=== PATIENT | female | born 1985 | race Caucasian/White ===

== ENCOUNTER 2017-08-26 15:59 | Emergency (ER) | payer OTHER ==
[~2017-08-26] VITALS: Ht 157.5 cm; Wt 84.9 kg
[2017-08-26 16:42] LABS: BASOPHILS # (AUTO) 0.06 x10^3/uL (0-0.1); BASOPHILS % (AUTO) 1 % (0-1); EOSINOPHILS # (AUTO) 0.02 x10^3/uL (0-0.4); EOSINOPHILS % (AUTO) 0 % (1-7); LYMPHOCYTES # (AUTO) 1.14 x10^3/uL (1-3.4); LYMPHOCYTES % (AUTO) 9 % (22-44); MD NO; MEAN CORPUSCULAR HEMOGLOBIN 30.1 pg (27.0-34.8); MEAN CORPUSCULAR HGB CONC 34.8 g/dL (32.4-35.8); MEAN CORPUSCULAR VOLUME 86.6 fL (80-100); MEAN PLATELET VOLUME 7.4 fL (7.4-10.4); MONOCYTES # (AUTO) 0.49 x10^3/uL (0.2-0.8); MONOCYTES % (AUTO) 4 % (2-9); NEUTROPHILS # (AUTO) 11.08 x10^3/uL (1.8-6.8); NEUTROPHILS % (AUTO) 87 % (42-75); PLATELET COUNT 244 x10^3/uL (130-400); RED BLOOD COUNT 4.63 x10^6/uL (3.82-5.3); RED CELL DISTRIBUTION WIDTH 13.5 % (9.6-15.2)
[2017-08-26 16:50] LABS: CULTURE INDICATED? NO; MICROSCOPIC AUTO
[2017-08-26 16:54] LABS: ALBUMIN 3.5 g/dL (3.4-5.0); ANION GAP 8 mmol/L (5-15); CALCIUM 9.1 mg/dL (8.5-10.1); CHLORIDE 110 mmol/L (98-107)
[2017-08-26] MEDS ORDERED: PRENATAL VITAMIN (17:27)
[2017-08-26 17:29] VITALS: BP 116/72
== END 2017-08-26 17:59 | disposition home or self-care (01) ==
LOC: ED 17:21
DX: O20.0 Threatened abortion (principal); O26.891 Other specified pregnancy related conditions, first trimester; R10.2 Pelvic and perineal pain; Z3A.09 9 weeks gestation of pregnancy
CPT/HCPCS: 36415; 76801; 80048; 81001; 82040; 84702; 85025; 86901; 99285

== ENCOUNTER 2018-03-08 18:38 | Outpatient (CLI) | payer OTHER ==
[~2018-03-08] VITALS: Ht 157.5 cm; Wt 90.0 kg
[~2018-03-08 18:38] MED LIST: PRENATAL VITAMIN
[2018-03-08 18:57] VITALS: BP 127/77
[2018-03-08 19:35] LABS: MICROSCOPIC INDICATED
== END 2018-03-08 21:29 | disposition home or self-care (01) ==
LOC: LDOP 18:38
PROVIDERS: ATTEND Obstetrics & Gynecology
DX: O26.893 Other specified pregnancy related conditions, third trimester (principal); Z3A.36 36 weeks gestation of pregnancy; R10.9 Unspecified abdominal pain
CPT/HCPCS: 59025; 81001; 87086; 99211; G0463

== ENCOUNTER 2018-03-25 05:07 | Inpatient (IN) | payer OTHER ==
[~2018-03-25] VITALS: Ht 157.5 cm; Wt 90.0 kg
[2018-03-25] MEDS ORDERED: OXYTOCIN 30U/ 0.9% NaCL 500ML 500 ML IV PRN (05:09)
[2018-03-25] MEDS: D5%-LACTATED RINGERS 1,000 ML IV SCH ×3 (05:09→19:56)
[2018-03-25] MEDS ORDERED: OXYTOCIN 30U/ 0.9% NaCL 500ML 500 ML IV ONE (05:09)
[2018-03-25 05:11] VITALS: BP 114/78
[2018-03-25] MEDS ORDERED: FENTANYL PF 100 MCG/2ML IVPush PRN (05:30)
[2018-03-25] MEDS ORDERED: FENTANYL PF 100 MCG/2ML IV PRN (05:30)
[2018-03-25] MEDS ORDERED: CALCIUM CARBONATE 500 MG TAB.CHEW PO PRN (05:30)
[2018-03-25] MEDS ORDERED: ONDANSETRON 2MG/ML, 2ML IVPush PRN ×2 (05:30→12:00)
[2018-03-25] MEDS ORDERED: NEWBORN KIT ONE (05:40)
[2018-03-25] MEDS ORDERED: OXYTOCIN 30U/ 0.9% NaCL 500ML 500 ML ONE (05:41)
[2018-03-25 05:49] LABS: BASOPHILS # (AUTO) 0.02 x10^3/uL (0-0.1); BASOPHILS % (AUTO) 0 % (0-1); EOSINOPHILS # (AUTO) 0.07 x10^3/uL (0-0.4); EOSINOPHILS % (AUTO) 1 % (1-7); LYMPHOCYTES # (AUTO) 1.35 x10^3/uL (1-3.4); LYMPHOCYTES % (AUTO) 15 % (22-44); MD NO; MEAN CORPUSCULAR HEMOGLOBIN 30.6 pg (27.0-34.8); MEAN CORPUSCULAR HGB CONC 34.6 g/dL (32.4-35.8); MEAN CORPUSCULAR VOLUME 88.2 fL (80-100); MEAN PLATELET VOLUME 7.7 fL (7.4-10.4); MONOCYTES # (AUTO) 0.69 x10^3/uL (0.2-0.8); MONOCYTES % (AUTO) 8 % (2-9); NEUTROPHILS # (AUTO) 6.93 x10^3/uL (1.8-6.8); NEUTROPHILS % (AUTO) 77 % (42-75); PLATELET COUNT 177 x10^3/uL (130-400); RED CELL DISTRIBUTION WIDTH 14.4 % (9.6-15.2)
[2018-03-25] MEDS: LACTATED RINGERS 1,000 ML IV SCH ×5 (06:10→19:59)
[2018-03-25 07:10] VITALS: BP 119/82
[2018-03-25] MEDS ORDERED: FENTANYL/BUPIV./NS/PF 250 ML EPIDCONT SCH (07:52)
[2018-03-25] MEDS ORDERED: FENTANYL PF 500 MCG, BUPIVACAINE/PF 0.5%, 30ML 62.5 ML in SODIUM CHLORIDE 0.9% 177.5 ML EPIDCONT SCH ×2 (08:30)
[2018-03-25] MEDS ORDERED: BUPIVACAINE 0.25% ONE (11:18)
[2018-03-25] MEDS: FENTANYL/BUPIV./NS/PF 250 ML EPIDCONT SCH (11:41)
[2018-03-25] MEDS ORDERED: EPHEDRINE 50 MG/ML, 1ML IVPush PRN (12:00)
[2018-03-25] MEDS ORDERED: LACTATED RINGERS 1,000 ML IVBOLUS PRN (12:00)
[2018-03-25] MEDS ORDERED: DIPHENHYDRAMINE 50 MG/ML, 1ML IVPush PRN (12:00)
[2018-03-25] MEDS ORDERED: NALOXONE 0.4 MG/ML, 1ML IVPush PRN (12:00)
[2018-03-25 19:30] VITALS: BP 124/78
[2018-03-25] MEDS ORDERED: ACETAMINOPHEN 325 MG TABLET ONE (19:51)
[2018-03-25] MEDS ORDERED: ACETAMINOPHEN 325 MG TABLET PO PRN (20:00)
[2018-03-25] MEDS: CEFAZOLIN PMX 2GM/50ML 50 ML IVPB SCH (20:40)
[2018-03-25] MEDS ORDERED: ONDANSETRON 2MG/ML, 2ML ONE (20:52)
[2018-03-26] MEDS ORDERED: ACETAMINOPHEN 325 MG TABLET ONE (01:22)
[2018-03-26] MEDS: LACTATED RINGERS 1,000 ML IV SCH ×6 (01:24→21:09)
[2018-03-26] MEDS: FENTANYL/BUPIV./NS/PF 250 ML EPIDCONT SCH (02:55)
[2018-03-26] MEDS ORDERED: FENTANYL PF 100 MCG/2ML ONE (03:16)
[2018-03-26] MEDS ORDERED: AZITHROMYCIN 1,000 MG in SODIUM CHLORIDE 0.9% 500 ML IV ONE (04:00)
[2018-03-26] MEDS: CEFAZOLIN PMX 2GM/50ML 50 ML IVPB SCH ×3 (04:03→20:00)
[2018-03-26] MEDS: D5%-LACTATED RINGERS 1,000 ML IV SCH ×3 (05:09→21:09)
[2018-03-26] MEDS ORDERED: OXYTOCIN 30U/ 0.9% NaCL 500ML 500 ML ONE (07:06)
[2018-03-26] MEDS ORDERED: KETOROLAC 30 MG/1 ML IM ONE (08:00)
[2018-03-26] MEDS ORDERED: METHYLERGONOVINE 0.2 MG/ML IM PRN (08:00)
[2018-03-26] MEDS ORDERED: ONDANSETRON 2MG/ML, 2ML IV PRN (08:00)
[2018-03-26] MEDS ORDERED: CALCIUM CARBONATE 500 MG TAB.CHEW PO PRN (08:00)
[2018-03-26] MEDS ORDERED: MISOPROSTOL 200 MCG TABLET PR PRN (08:00)
[2018-03-26] MEDS ORDERED: MAGNESIUM HYDROXIDE 8%, 30ML UDC PO PRN (08:00)
[2018-03-26] MEDS: OXYTOCIN 30U/ 0.9% NaCL 500ML 500 ML IV SCH ×2 (08:15→17:53)
[2018-03-26] MEDS ORDERED: KETOROLAC 30 MG/1 ML ONE (08:30)
[2018-03-26] MEDS: PRENATAL VIT/IRON/FA 1 EACH TABLET PO SCH ×2 (09:00→12:36)
[2018-03-26 09:50] VITALS: BP 105/73
[2018-03-26] MEDS: DOCUSATE 100 MG CAPSULE PO PRN (12:36)
[2018-03-26] MEDS: IBUPROFEN 600 MG TABLET PO PRN ×2 (12:36→19:52)
[2018-03-26] MEDS: OXYcodone/APAP 5/325MG TABLET PO PRN ×2 (12:36→19:52)
[2018-03-26 12:46] VITALS: BP 123/84
[2018-03-26 16:23] VITALS: BP 118/67
[2018-03-26 16:52] LABS: MEAN CORPUSCULAR HEMOGLOBIN 31.1 pg (27.0-34.8); MEAN CORPUSCULAR HGB CONC 35.1 g/dL (32.4-35.8); MEAN CORPUSCULAR VOLUME 88.7 fL (80-100); MEAN PLATELET VOLUME 7.7 fL (7.4-10.4); PLATELET COUNT 160 x10^3/uL (130-400); RED BLOOD COUNT 3.58 x10^6/uL (3.82-5.3); RED CELL DISTRIBUTION WIDTH 14.4 % (9.6-15.2)
[2018-03-26 17:12] LABS: MD YES
[2018-03-26 17:14] LABS: <PLATELET ESTIMATE> ADEQUATE; <PLT MORPHOLOGY> NORMAL PLT MORPH; <RBC MORPHOLOGY> NORMAL; BAND#(MANUAL) 1.86 x10^3/uL; BANDS%(MANUAL) 8 % (0-7); LYMPH#(MANUAL) 3.25 x10^3/uL (1-3.4); LYMPHS% (MANUAL) 14 % (22-44); MONOS#(MANUAL) 0.46 x10^3/uL (0.3-2.7); MONOS% (MANUAL) 2 % (2-9); SEG#(MANUAL) 17.63 x10^3/uL (1.8-6.8); SEGS% (MANUAL) 76 % (42-75)
[2018-03-26 19:15] VITALS: BP 122/82
[2018-03-26 23:58] VITALS: BP 92/55
[2018-03-27] MEDS: OXYcodone/APAP 5/325MG TABLET PO PRN (00:20)
[2018-03-27] MEDS: IBUPROFEN 600 MG TABLET PO PRN ×3 (03:00→17:27)
[2018-03-27 04:00] VITALS: BP 98/61
[2018-03-27] MEDS: OXYcodone IR 5MG TABLET PO PRN ×4 (05:47→21:35)
[2018-03-27 08:30] VITALS: BP 99/61
[2018-03-27] MEDS: DOCUSATE 100 MG CAPSULE PO PRN ×2 (08:42→21:35)
[2018-03-27] MEDS: PRENATAL VIT/IRON/FA 1 EACH TABLET PO SCH (08:43)
[2018-03-27 10:29] LABS: BASOPHILS # (AUTO) 0.02 x10^3/uL (0-0.1); BASOPHILS % (AUTO) 0 % (0-1); EOSINOPHILS # (AUTO) 0.08 x10^3/uL (0-0.4); EOSINOPHILS % (AUTO) 1 % (1-7); LYMPHOCYTES # (AUTO) 1.48 x10^3/uL (1-3.4); LYMPHOCYTES % (AUTO) 10 % (22-44); MD NO; MEAN CORPUSCULAR HEMOGLOBIN 30.5 pg (27.0-34.8); MEAN CORPUSCULAR HGB CONC 34.1 g/dL (32.4-35.8); MEAN CORPUSCULAR VOLUME 89.3 fL (80-100); MEAN PLATELET VOLUME 7.6 fL (7.4-10.4); MONOCYTES # (AUTO) 0.81 x10^3/uL (0.2-0.8); MONOCYTES % (AUTO) 5 % (2-9); NEUTROPHILS % (AUTO) 85 % (42-75); PLATELET COUNT 168 x10^3/uL (130-400); RED BLOOD COUNT 3.42 x10^6/uL (3.82-5.3); RED CELL DISTRIBUTION WIDTH 14.5 % (9.6-15.2)
[2018-03-27 20:00] VITALS: BP 111/77
[2018-03-28] MEDS: IBUPROFEN 600 MG TABLET PO PRN ×2 (00:55→08:18)
[2018-03-28] MEDS: OXYcodone IR 5MG TABLET PO PRN ×3 (01:22→08:18)
[2018-03-28 06:53] LABS: BASOPHILS # (AUTO) 0.03 x10^3/uL (0-0.1); BASOPHILS % (AUTO) 0 % (0-1); EOSINOPHILS # (AUTO) 0.09 x10^3/uL (0-0.4); EOSINOPHILS % (AUTO) 1 % (1-7); LYMPHOCYTES # (AUTO) 1.53 x10^3/uL (1-3.4); LYMPHOCYTES % (AUTO) 14 % (22-44); MD NO; MEAN CORPUSCULAR HEMOGLOBIN 30.6 pg (27.0-34.8); MEAN CORPUSCULAR HGB CONC 34.5 g/dL (32.4-35.8); MEAN CORPUSCULAR VOLUME 88.7 fL (80-100); MEAN PLATELET VOLUME 7.2 fL (7.4-10.4); MONOCYTES # (AUTO) 0.59 x10^3/uL (0.2-0.8); MONOCYTES % (AUTO) 5 % (2-9); NEUTROPHILS # (AUTO) 8.85 x10^3/uL (1.8-6.8); NEUTROPHILS % (AUTO) 80 % (42-75); PLATELET COUNT 166 x10^3/uL (130-400); RED BLOOD COUNT 3.26 x10^6/uL (3.82-5.3); RED CELL DISTRIBUTION WIDTH 14.4 % (9.6-15.2)
[2018-03-28 07:30] VITALS: BP 115/71
[2018-03-28] MEDS: PRENATAL VIT/IRON/FA 1 EACH TABLET PO SCH (08:18)
[2018-03-28] MEDS: DOCUSATE 100 MG CAPSULE PO PRN (08:18)
[2018-03-28] MEDS ORDERED: IBUP-1222 PO (11:49)
== END 2018-03-28 14:35 | disposition home or self-care (01) | DRG 807 ==
LOC: LDIP 05:07 → 2NW 03-26 09:48
PROVIDERS: ADMIT Obstetrics & Gynecology; ATTEND Obstetrics & Gynecology
PROC: 10E0XZZ Delivery of Products of Conception, External Approach (ICD-10-PCS; principal; 2018-03-26)
PROC: 3E0R3BZ Introduction of Anesthetic Agent into Spinal Canal, Percutaneous Approach (ICD-10-PCS; 2018-03-26)
PROC: 00HU33Z Insertion of Infusion Device into Spinal Canal, Percutaneous Approach (ICD-10-PCS; 2018-03-26)
PROC: 0HQ9XZZ Repair Perineum Skin, External Approach (ICD-10-PCS; 2018-03-26)
DX: O24.420 Gestational diabetes mellitus in childbirth, diet controlled (principal); Z37.0 Single live birth; O63.1 Prolonged second stage (of labor); Z3A.39 39 weeks gestation of pregnancy; O43.193 Other malformation of placenta, third trimester; O70.0 First degree perineal laceration during delivery
CPT/HCPCS: 36415; J7121; 82947; 82962; 85025; 86850; 86900; G0378; J0456; J0690; J1885; J2405; J3010; J2590; J7040; J7120